=== PATIENT | male | born 1950 | race Caucasian/White ===

== ENCOUNTER 2018-07-20 10:58 | Observation (INO) | payer BC, MEDICARE ==
--- NOTE | 2018-07-20 12:08 | ED ---
HPI Chest Pain - HPI Summary HPI Summary: Pt is a 68 y/o male who presents to the ED c/o CP. For the past week hes had an intermittent fluttering sensation in his chest. Yesterday he began to have CP while doing woodwork that was tolerable but constant. The worst pain was rated an 8/10 in severity yesterday. He then took ASA and went to bed. This morning the pt still felt mild CP and it started to worsen throughout the day. Pt went to his PCP and had an EKG done, and was referred to the ED. The pain is described as aching, and is currently rated as a 3/10 in severity. He also reports chest tightness on the left side. Yesterday the pain radiated to his left shoulder, but he denies any radiation to his arm or jaw. He denies any recent long travel. Pt denies smoking or drinking. He denies any HTN, HLD, or DM , but he hasnt been to his PCP in years. Pt denies any fever, chills, erythema, sore throat, SOB, cough, abdominal pain, N/V, dysuria, hematuria, myalgia, edema, rash, or dizziness. He has a FHx of [place]. - History of Current Complaint Chief Complaint: EDChestWallPain Time Seen by Provider: 07/20/18 11:55 Hx Obtained From: Patient Onset/Duration: Started Days Ago - 1 week ago, Still Present Timing: Constant Initial Severity: Moderate Current Severity: Mild Pain Intensity: 2 Pain Scale Used: 0-10 Numeric Chest Pain Radiates: Yes Chest Pain Radiates To:: Shoulder - Left Character: Tightness, Other: - Aching Aggravating Factor(s): Nothing Alleviating Factor(s): Nothing Associated Signs and Symptoms: Positive: Chest Pain - Allergy/Home Medications Allergies/Adverse Reactions: Allergies Allergy/AdvReac Type Severity Reaction Status Date / Time No Known Allergies Allergy Verified 07/20/18 11:04 PMH/Surg Hx/FS Hx/Imm Hx Endocrine/Hematology History: Denies: Hx Diabetes Cardiovascular History: Denies: Hx Hypercholesterolemia, Hx Hypertension - Surgical History Surgery Procedure, Year, and Place: prostate surgery Infectious Disease History: No Infectious Disease History: Denies: Traveled Outside the [place] in Last 30 Days - Family History Known Family History: Positive: Cardiac Disease - [place] - Social History Alcohol Use: None Hx Substance Use: No Substance Use Type: Reports: None Hx Tobacco Use: No Smoking Status (MU): Never Smoked Tobacco Review of Systems Negative: Fever, Chills Negative: Erythema Negative: Sore Throat Positive: Chest Pain Negative: Shortness Of Breath, Cough Negative: Abdominal Pain, Vomiting, Nausea Negative: dysuria, hematuria Negative: Myalgia, Edema Negative: Rash Neurological: Other - NEGATIVE: dizziness All Other Systems Reviewed And Are Negative: Yes Physical Exam - Summary Physical Exam Summary: Constitutional: Well-developed, Well-nourished, Alert. (-) Distressed Skin: Warm, Dry HENT: Normocephalic; Atraumatic Eyes: Conjunctiva normal Neck: Musculoskeletal ROM normal neck. (-) JVD, (-) Stridor, (-) Tracheal deviation Cardio: Rhythm regular, rate normal, Heart sounds normal; Intact distal pulses; The pedal pulses are 2+ and symmetric. Radial pulses are 2+ and symmetric. (-) Murmur Pulmonary/Chest wall: Effort normal. (-) Respiratory distress, (-) Wheezes, (-) Rales, no reproducible pain Abd: Soft, (-) epigastric tenderness, (-) Distension, (-) Guarding, (-) Rebound Musculoskeletal: (-) Edema Lymph: (-) Cervical adenopathy Neuro: Alert, Oriented x3 Psych: Mood and affect Normal Triage Information Reviewed: Yes Vital Signs On Initial Exam: Initial Vitals Temp Pulse Resp BP Pulse Ox 97.5 F 62 16 135/67 98 07/20/18 11:00 07/20/18 11:00 07/20/18 11:00 07/20/18 11:00 07/20/18 11:00 Vital Signs Reviewed: Yes Diagnostics - Vital Signs Vital Signs Temp Pulse Resp BP Pulse Ox 07/20/18 11:00 97.5 F 62 16 135/67 98 - Laboratory Result Diagrams: 07/20/18 12:06 07/20/18 12:06 Lab Statement: Any lab studies that have been ordered have been reviewed, and results considered in the medical decision making process. - Radiology CXR Radiology Interpretation Completed By: Radiologist Summary of Radiographic Findings: NO EVIDENCE FOR ACTIVE CARDIOPULMONARY DISEASE. ED physician reivewed radiology report. - EKG 11:07 Cardiac Rate: Bradycardia - 59 bpm EKG Rhythm: Sinus Rhythm Summary of EKG Findings: No STEMI Re-Evaluation - Re-Evaluation First Eval Re-Evaluation Time: 13:20 Change: Improved Comment: Pt feels better after the NTG and ASA. Second Eval Re-Evaluation Time: 13:30 Change: Worse Comment: Pt is having some CP again. Chest Pain Course/Dx - Course Course Of Treatment: Pt is a 68 y/o male who presents to the ED c/o CP. For the past week hes had an intermittent fluttering sensation in his chest. Yesterday he began to have CP while doing woodwork that was tolerable but constant. The worst pain was rated an 8/10 in severity yesterday. He then took ASA and went to bed. This morning the pt still felt mild CP and it started to worsen throughout the day. Pt went to his PCP and had an EKG done, and was referred to the ED. The pain is described as aching, and is currently rated as a 3/10 in severity. He also reports chest tightness on the left side. Yesterday the pain radiated to his left shoulder, but he denies any radiation to his arm or jaw. Final dx is unspecified CP. Pt will be admitted to Dr. Restrepo. - Diagnoses Provider Diagnoses: Chest pain, unspecified - Provider Notifications Discussed Care Of Patient With: Lucy Restrepo Time Discussed With Above Provider: 13:20 Instructed by Provider To: Admit As Inpatient Discharge - Sign-Out/Discharge Documenting (check all that apply): Patient Departure - Admit - Discharge Plan Condition: Stable Disposition: ADMITTED TO [facility] - Billing Disposition and Condition Condition: STABLE Disposition: Admitted to [facility] - Attestation Statements Document Initiated by Wilderibe: Yes Documenting Scribe: Geni Zelaya Provider For Whom Aki is Documenting (Include Credential): Wicho Wagner MD Scribe Attestation: Geni Miller scribed for Wicho Wagner MD on 07/24/18 at 1034. Scribe Documentation Reviewed: Yes Provider Attestation: The documentation as recorded by the Geni de luna accurately reflects the service I personally performed and the decisions made by me, Wicho Wagner MD Status of Scribe Document: Viewed
[2018-07-20] MEDS ORDERED: Aspirin 81 mg CHEW TAB* 81 MG TAB.CHEW PO ONE (12:14)
[2018-07-20 12:22] LABS: ABS Basophils 0 10^3/ul (0-0.2); ABS Eosinophils 0.1 10^3/ul (0-0.6); ABS Lymphocytes 1.1 10^3/ul (1.0-4.8); ABS Monocytes 0.7 10^3/ul (0-0.8); ABS Neutrophils 3.8 10^3/ul (1.5-7.7); ABS Nucleated RBC 0 10^3/ul; Eosinophil % 1.5 %; Hematocrit 44 % (42-52); Hemoglobin 14.7 g/dl (14.0-18.0); Lymphocyte % 19.2 %; Mean Corpuscular HGB Conc 33 g/dl (31-36); Mean Corpuscular Hemoglobin 31 pg (27-31); Mean Corpuscular Volume 93 fL (80-94); Mean Platelet Volume 8.2 fL (7.4-10.4); Nucleated Red Blood Cells % 0; Platelet Count 283 10^3/ul (150-450); Red Blood Count 4.79 10^6/ul (4.00-5.40); Red Cell Distribution Width 12 % (10.5-15); White Blood Count 5.8 10^3/ul (3.5-10.8)
[2018-07-20] MEDS: Nitroglycerin TAB 0.4 MG* 0.4 MG TAB SL ONE ×2 (12:43→13:44)
[2018-07-20] MEDS ORDERED: Nitroglycerin 0.1 mg/Hr PATCH* (2.5 MG) TRANSDERM ONE (13:34)
[2018-07-20] MEDS ORDERED: Nitroglycerin TAB 0.4 MG* 0.4 MG TAB SL ONE (13:34)
[2018-07-20] MEDS ORDERED: Acetaminophen TAB* 325 MG PO PRN (15:00)
--- NOTE | 2018-07-20 20:35 | HP ---
CC: [facility].* HISTORY AND PHYSICAL: DATE OF ADMISSION: 07/20/18 PRIMARY CARE PROVIDER: [facility]. CHIEF COMPLAINT: Chest pain. HISTORY OF PRESENT ILLNESS: Mr. Kent is a 68-year-old male who has history of prostate cancer and otherwise no past medical history, who presented to the emergency room with complaints of chest pain. The patient states that a few weeks ago, he noted a fluttering sensation in the left side of his chest. He states it felt as if his eyelids were twitching, but he felt that in his chest. He believed it lasted for approximately 10 to 15 minutes and then went away on its own. The day prior to admission, the patient noted left-sided chest discomfort. He described this as a dull ache. He states he has never felt anything like this in the past. He states that it was present all day long; however, he became more aware of the discomfort off and on throughout the day. He did take aspirin last evening and upon waking this morning, he continued to feel discomfort in his chest. He went to work, but as the day was progressing, he again felt an increase in the intensity of the discomfort and ultimately went to see his PCP. At the PCP office, he was subsequently referred to the emergency room for evaluation of chest discomfort. Of note, the patient states that a couple of weeks ago when there was a heavy snow storm, he was out shoveling and he believes that he injured his back. The back discomfort has now resolved. He did not have any chest discomfort with the shoveling. He did state that he felt as if his heart was racing intermittently while doing that and would need to rest. He denies any associated shortness of breath, sweats or nausea with the discomfort he is feeling now. PAST MEDICAL HISTORY: History of prostate cancer. PAST SURGICAL HISTORY: Prostatectomy. MEDICATIONS: None. ALLERGIES: No known drug allergies. FAMILY HISTORY: Mom at the age of 80 of bladder cancer. Dad at the age of 97 of old age. SOCIAL HISTORY: The patient is a nonsmoker. He drinks several alcoholic beverages per week. 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 He is . He has 4 biologic children and 3 stepchildren. His , Sandra, would be his healthcare proxy. REVIEW OF SYSTEMS: A complete 11-system review of systems is obtained. Pertinent positives and negatives are as per HPI and otherwise negative. PHYSICAL EXAMINATION GENERAL: The patient is a well-developed, middle-aged male, seen sitting up in the stretcher, in no acute distress. VITAL SIGNS: Blood pressure 125/80, pulse 61, respirations 15, temp 97.5, O2 sats 99% on room air. HEENT: Pupils are equal and round. Extraocular muscles are intact. Oropharynx is clear. Oral mucosa is moist. There is no submandibular, cervical , or supraclavicular adenopathy. Thyroid is not enlarged. No thyroid nodules noted. PULMONARY: Lungs are clear to auscultation bilaterally. CARDIAC: Normal S1, S2. Regular rate and rhythm. I do not appreciate any murmurs. ABDOMEN: Bowel sounds are present. Abdomen is soft, nontender, nondistended. MUSCULOSKELETAL: There is no edema. There is full active range of motion of all 4 extremities. NEUROLOGIC: Cranial nerves II through XII are grossly intact. Sensation is intact to light touch throughout. Strength is 5/5 and symmetric in both upper and lower extremities bilaterally. PSYCH: The patient is alert. He is oriented x3. Affect appears appropriate. SKIN: Warm and dry. There are no rashes. DIAGNOSTIC STUDIES/LAB DATA: WBC 5.8, hemoglobin 14.7, hematocrit 44, platelets 283. D-dimer less than 200. Sodium 139, potassium 4.2, chloride 105 , CO2 of 26, BUN 20, creatinine 0.94, glucose 92, lactic acid 0.6, calcium 9.5. Bilirubin 0.6, AST 15, ALT 15, alk phos 80. Troponin 0. Albumin 4.7. EKG revealed sinus bradycardia without any acute ST-T wave abnormalities. Chest x-ray, no evidence for active cardiopulmonary disease. ASSESSMENT AND PLAN: Mr. Kent is a 68-year-old male with history of prostate cancer who presented to the emergency room with complaints of chest pain for just over 24 hours. 1. Chest pain. The patient's initial troponin is 0. His EKG has no acute changes. My suspicion is the pain that he is currently feeling does not represent acute coronary syndrome or coronary artery disease, given the fact that it has been present for over 24 hours and his first troponin is negative. Given the patient's middle age status, however, we will go ahead and admit the patient and have an exercise stress test tomorrow. If the patient rules in with the stress test, Cardiology consultation will be requested. If stress test is negative, he will be discharged home. I will add on a lipid profile to the labs obtained in the emergency room. 2. DVT prophylaxis. According to the Adult Thrombosis Prophylaxis Risk Factor Assessment Guide, the patient has a total risk factor score of 4 making him high risk. He will be placed on heparin 5000 units subcutaneous q.12 hours in addition to ambulation. 3. Code status is full. TIME SPENT: 50 minutes were spent admitting this patient. [id number]/[facility] #: [id number] D[facility]TER
[2018-07-20] MEDS: Heparin VIAL(*) 5000 UNITS/ML VIAL (FIVE THOUSAND) SUBCUT SCH (20:47)
[2018-07-21 07:49] VITALS: BP 112/62
[2018-07-21] MEDS: Heparin VIAL(*) 5000 UNITS/ML VIAL (FIVE THOUSAND) SUBCUT SCH (08:18)
--- NOTE | 2018-07-21 12:38 | PN ---
Subjective Date of Service: 07/21/18 Interval History: Mr. Kent has continued to have some fleeting atypical discomfort in his left chest wall. His exercise stress test was negative without evidence of ischemia. He would like to do more research before starting a statin, his risk of CVD is calculated at 12.5% for 10 years. He is very eager for discharge to home. Objective Active Medications: Acetaminophen (Tylenol Tab*) 650 mg PO Q4H PRN Heparin Sodium (Porcine) (Heparin Vial(*)) 5,000 units SUBCUT Q12HR ILANA Vital Signs: Temp Pulse Resp BP Pulse Ox 98.1 F 62 14 112/62 99 07/21/18 07:28 07/21/18 07:28 07/21/18 07:28 07/21/18 07:28 07/21/18 07:28 Oxygen Devices in Use Now: None Appearance: Male sitting up in bed in NAD Eyes: No Scleral Icterus Ears/Nose/Mouth/Throat: Mucous Membranes Moist Neck: Trachea Midline Respiratory: Clear to Auscultation Cardiovascular: NL Sounds; No Murmurs; No JVD, No Edema Abdominal: NL Sounds; No Tenderness; No Distention Lymphatic: No Cervical Adenopathy Extremities: No Edema Skin: No Rash or Ulcers Neurological: Alert and Oriented x 3, NL Muscle Strength and Tone Nutrition: Taking PO's Result Diagrams: 07/20/18 12:06 07/20/18 12:06 Assess/Plan/Problems-Billing Assessment: Mr. Kent is a 68 yo M with PMH of prostate cancer who was admitted on 07/20/18 with chest pain. - Patient Problems (1) Chest pain Comment: - Intermittent fleeting discomfort in left chest, recently shoveling snow and strained back, question if musculoskeletal pain - Stress test negative - Follow up with PCP if pain persists (2) DVT prophylaxis Comment: - HeparinSQ (3) Full code status Comment: Status and Disposition: OBV. Discharge to home
--- NOTE | 2018-07-22 00:29 | DS ---
CC: Dr. Fernandez * HOSPITAL MEDICINE DISCHARGE SUMMARY: DATE OF ADMISSION: 07/20/18 DATE OF DISCHARGE: 07/21/18 PRIMARY CARE PHYSICIAN: Dr. Fernandez. ATTENDING PHYSICIAN: Dr. Lucy Restrepo * (dictation provided by Claudette Whipple NP ). PRIMARY DIAGNOSES: 1. Atypical chest pain. 2. Hyperlipidemia with calculated CVD risk of 12.5% in the next 10 years. SECONDARY DIAGNOSIS: None. MEDICATIONS AT TIME OF DISCHARGE: Atorvastatin 40 mg p.o. daily. HOSPITAL COURSE: Mr. Kent is a 68-year-old male, presented to the hospital on 07/20/18 with concern for chest pain. Please see dictated H and P from Lucy Restrepo DO for complete details. In brief, the patient states that he had had a fluttering sensation in his left chest a few weeks prior to admission. The day prior to admission, he noted left chest discomfort described as a dull ache that came and went throughout the day. He went to see his primary care physician, who referred him to the emergency room. In the emergency room, the patient had labs, which showed a normal troponin of 0.00. He had an EKG, which shows sinus bradycardia with a heart rate of almost 60 and no evidence of ischemia. The patient was placed on observation in the hospital. He had repeat troponins, all of which were negative. His EKG showed no evidence of ischemia. He went on for an exercise stress test today, which was read as a low risk with no evidence of ischemia and with good exercise capacity. Mr. Kent was medically stable for discharge to home. I questioned whether or not his discomfort in his chest may be related to musculoskeletal injury as he does report shoveling snow recently and having some back pain. Regardless, his workup has been negative here including a chest x-ray, which was also negative. The patient does have slightly elevated lipid panel and is being calculated to have a 12.5% risk of untoward cardiovascular event in the next 10 years and therefore recommended to go on a moderate dose statin. He would like to think about this further before starting it and I have written for the statin it is available for him at his pharmacy if he chooses to use it. DISPOSITION: Home. DIET: Low-fat. ACTIVITY: As tolerated. FOLLOWUP PLANS: Please follow up with Dr. Fernandez in the next 1 week regarding management of hyperlipidemia. TIME SPENT: Approximately 60 minutes were spent on discharge of this patient, more than half time spent with the patient at the bedside reviewing the events leading up to this hospitalization, performing the physical examination, and reviewing the plan of care. CLAUDETTE WHIPPLE NP [id number]/[facility] #: [id number] [facility]
== END 2018-07-21 13:35 | disposition home or self-care (01) ==
LOC: ED 10:58 → MEDTELE 15:00
PROVIDERS: ADMIT Hospitalist; ATTEND Hospitalist
DX: R07.89 Other chest pain (principal); E78.5 Hyperlipidemia, unspecified; Z85.46 Personal history of malignant neoplasm of prostate; Z90.79 Acquired absence of other genital organ(s)
CPT/HCPCS: 36415; 71046; 80053; 80061; 83605; 84484; 85025; 85379; 93005; 93017; 96372; 99284; A9270-GY; G0378